=== PATIENT | female | born 2000 | race American Indian/Alaskan Native ===

== ENCOUNTER 2020-05-26 23:09 | Outpatient (CLI) | payer OTHER ==
[2020-05-27] MEDS ORDERED: LACTATED RINGERS 500 ML IV ONE (00:25)
[2020-05-27 00:33] VITALS: BP 129/61
[2020-05-27 01:03] LABS: Bacteria,Urine 1+ /HPF (Negative); Bilirubin,Urine NEG (Negative); Blood,Urine MOD (Negative); Color,Urine Yellow (Yellow); Urobilinogen,Urine < 2.0 mg/dL (<2.0)
[2020-05-27 01:04] LABS: Protein,Urine >500 mg/dL (Negative); RBC,Urine > 182.0 /HPF (0.0-6.0); WBC,Urine > 182.0 /HPF (0.0-6.0)
[2020-05-27 01:09] LABS: Amphetamine Screen,Urine PRESUMPTIVE NEGATIVE; Benzodiazepines Screen,Urine PRESUMPTIVE NEGATIVE; Cannabinoid Screen,Urine PRESUMPTIVE POSITIVE; Cocaine Screen,Urine PRESUMPTIVE NEGATIVE; Methadone Screen,Urine PRESUMPTIVE NEGATIVE; Opiate Screen,Urine PRESUMPTIVE NEGATIVE
--- NOTE | 2020-05-27 01:43 | Ultrasound Report ---
OB Ultrasound Biophysical profile HISTORY: wellbeing. TECHNIQUE: Grayscale and color imaging performed. COMPARISON: None FINDINGS: There is a single viable intrauterine gestation with cephalic presentation. Placenta is fun mi in location. Heart rate is 149 bpm. Estimated gestational age by ultrasound is 31 weeks and 4 day s with an estimated delivery date of 07/25/2020. Estimated weight is 1557 g and BRUCE is 9.2 cm. On biophysical profile, the fetus received a score of 2 out of 2 for breathing, movement, posture/ton e, and BRUCE. Total score was 8 out of 8. IMPRESSION: 1. Single viable intrauterine gestation as above. 2. Normal BPP. Signer Name: Gilbert Ortega MD Signed: 05/27/2020 1:39 AM Workstation Name: [id number]
== END 2020-05-27 01:22 | disposition home or self-care (01) ==
LOC: TRG 23:09 → APU 23:20 → TRG 05-27 01:22
PROVIDERS: ATTEND Obstetrics & Gynecology
DX: Z34.93 Encounter for supervision of normal pregnancy, unspecified, third trimester (principal); Z3A.31 31 weeks gestation of pregnancy
CPT/HCPCS: 59025; 76810; 76815; 76816; 76819; 80307; 81001